=== PATIENT | female | born 1990 | race Caucasian/White ===

== ENCOUNTER 2020-11-02 06:44 | Inpatient (IN) | payer OTHER ==
[2020-11-02 07:59] LABS: HEMOGLOBIN 9.6 gm/dl (12.3-15.3); RED BLOOD COUNT 3.43 M/UL (4.00-5.10); WHITE BLOOD COUNT 6.9 K/UL (4.5-11.0)
[2020-11-03 09:13] LABS: RUBELLA ANTIBODIES, IGG 1.36 index (Immune >0.99)
[2020-11-03 12:13] LABS: HBSAG SCREEN Negative (Negative); HEP A AB, IGM Negative (Negative); HEP B CORE AB, IGM Negative (Negative); HEP C VIRUS AB >11.0 (0.0-0.9)
[2020-11-03 17:08] LABS: TREPONEMA PALLIDUM ANTIBODIES Non Reactive (Non Reactive)
== END 2020-11-02 11:11 | disposition short-term general hospital (02) | DRG 786 ==
LOC: GENOP 06:44 → OB 08:07
PROVIDERS: Obstetrics & Gynecology; ADMIT Obstetrics & Gynecology
PROC: 10D00Z1 Extraction of Products of Conception, Low, Open Approach (ICD-10-PCS; principal; 2020-11-02 08:21)
DX: O45.93 Premature separation of placenta, unspecified, third trimester (principal); O44.13 Complete placenta previa with hemorrhage, third trimester; O72.1 Other immediate postpartum hemorrhage; Z20.822 Contact with and (suspected) exposure to COVID-19; Z37.0 Single live birth; Z3A.33 33 weeks gestation of pregnancy; Z28.21 Immunization not carried out because of patient refusal
CPT/HCPCS: 80074; 80307; 81001; 82800; 85025; 86762; 86780; 86850; 86900; 86901; 86920; J2210; J2270; J2590; J2704; J3010; J3475; J7030; J7120; P9016; U0002

== ENCOUNTER 2020-11-29 19:39 | Emergency (ER) | payer OTHER ==
[2020-11-29 20:43] LABS: RED BLOOD COUNT 4.02 M/UL (4.00-5.10); WHITE BLOOD COUNT 6.9 K/UL (4.5-11.0)
[2020-11-29 20:52] LABS: BUN/CREATININE RATIO 19 (0-10)
== END 2020-11-29 20:30 | disposition left against medical advice (07) ==
LOC: ER1 19:39
PROVIDERS: Physician Assistant
DX: R07.81 Pleurodynia (principal); F17.290 Nicotine dependence, other tobacco product, uncomplicated
CPT/HCPCS: 80048; 85025; 85379; 99281

== ENCOUNTER 2020-11-29 22:21 | Emergency (ER) | payer OTHER | END 2020-11-29 23:30 | disposition left against medical advice (07) | LOC: ER1 22:21 | DX: R07.81 Pleurodynia (principal); F17.290 Nicotine dependence, other tobacco product, uncomplicated | CPT/HCPCS: 99281; Q9967 ==